=== PATIENT | male | born 1970 | race African-American/Black ===

== ENCOUNTER 2021-11-05 14:16 | Emergency (ER) | payer OTHER ==
[2021-11-05 14:22] VITALS: TEMP 98.1
[2021-11-05] MEDS ORDERED: ONDANSETRON 4 MG/2 ML VIAL IVPUSH ONE (15:03)
[2021-11-05] MEDS ORDERED: ACETAMINOPHEN 1000 MG/100 ML BAG IVPB ONE (15:03)
[2021-11-05] MEDS ORDERED: SODIUM CHLORIDE 1,000 ML IV STA (15:03)
[2021-11-05] MEDS ORDERED: PANTOPRAZOLE SODIUM 40 MG VIAL IVPUSH ONE (15:04)
[2021-11-05] MEDS ORDERED: ACETAMINOPHEN INJECTION 100 ML IVPB ONE (15:24)
[2021-11-05] MEDS ORDERED: PANTOPRAZOLE SODIUM 40 MG VIAL ONE (15:25)
[2021-11-05] MEDS ORDERED: ONDANSETRON 4 MG/2 ML VIAL ONE (15:25)
[2021-11-05 16:05] LABS: BASO % 0.9 % (0-2.0); EOS % 3.8 % (0-4.5); HEMATOCRIT 45.6 % (35.4-49); HEMOGLOBIN 14.7 GM/dL (11.7-16.9); LYMPH % 38.1 % (8-40); MCH 27.1 pg (25.7-33.7); MCHC 32.2 g/dl (32.0-35.9); MEAN CELL VOLUME 84.3 fl (80-96); MEAN PLT VOLUME 10.3 fl (7.5-11.1); MONO % 9.3 % (3.8-10.2); NEUT % 47.9 % (42.8-82.8); PLATELET COUNT 155 10^3/uL (134-434); RBC 5.41 M/mm3 (4.00-5.60); RDW 15.4 % (11.9-15.9); WHITE BLOOD COUNT 5.6 K/mm3 (4.0-10.0)
[2021-11-05 16:18] LABS: CALCIUM 8.7 mg/dL (8.5-10.1)
[2021-11-05 16:19] LABS: ALBUMIN 3.6 g/dl (3.4-5.0); BLOOD UREA NITROGEN 9.7 mg/dL (7-18)
[2021-11-05 16:22] LABS: CREATININE 1.4 mg/dL (0.55-1.3)
[2021-11-05 16:23] LABS: BILIRUBIN,TOTAL 0.7 mg/dL (0.2-1)
[2021-11-05 16:24] LABS: TOT PROT 6.9 g/dl (6.4-8.2)
[2021-11-05] MEDS ORDERED: ceFAZolin 2 GRAM PREMIX BAG IVPB ONE (17:42)
[2021-11-05] MEDS ORDERED: CEFAZOLIN 2 GM in DEXTROSE 5%-WATER - 100 ML IVPB ONE (18:00)
[2021-11-05 22:27] VITALS: BP 172/97; PULSE 65
== END 2021-11-05 20:00 | disposition short-term general hospital (02) ==
LOC: JER 14:16
PROC: 3E033GC Introduction of Other Therapeutic Substance into Peripheral Vein, Percutaneous Approach (ICD-10-PCS; principal; 2021-11-05)
DX: K80.50 Calculus of bile duct without cholangitis or cholecystitis without obstruction (principal)
CPT/HCPCS: 36415; 76705-TC; 80053; 83690; 84484; 85025; 86850; 86900; 86901; 93005; 93010; 99285-25